=== PATIENT | male | born 1950 | race Caucasian/White ===

== ENCOUNTER → 2018-02-21 11:41 | Day surgery (SDC) | payer MEDICARE, BC ==
[~2018-02-21 11:41] MED LIST: Acetaminophen TAB* 325 MG PO PRN; Buffered Lidocaine 0.9% SYRIN* 5 ML/SYR SYRINGE INTRADERM ONE; Cyclopentolate 1% OPTH.SOL* 2 ML BTL ONE; Ketorolac 0.5% OPHTH (NF) 0.5 % 5 ML BTL ONE; Lidocaine 1%* 5 ML VIAL ONE; Lidocaine 2% EPI 1:200000 MPF*10-20 ML VIAL ONE; Midazolam* 1 MG/ML 2 ML VIAL (2 MG) ONE; Neomycin/Polymy/Dex OPTH.SUSP* MAXITROL 0.1% 5 ML ONE; Phenylephrine 2.5% OPTH.SOL* 2 ML BTL ONE; Povidone Iodine 5% OPTH* 30 ML BTL ONE; Proparacaine 0.5% OPHTH.SOL* 15 ML BTL ONE; acetaZOLAMIDE TAB* 250 MG ONE
[2018-02-21 14:59] VITALS: BP 105/48
--- NOTE | 2018-02-22 03:19 | OP ---
DATE OF OPERATION: 02/21/18 [facility] DATE OF : 48 SURGEON: Yonis Guzman M.D. PREOPERATIVE DIAGNOSIS: Cataract right eye. POSTOPERATIVE DIAGNOSIS: Cataract right eye. OPERATIVE PROCEDURE: Extracapsular cataract extraction with intraocular lens implant right eye and CTR. DESCRIPTION OF PROCEDURE: The patient was brought to the operating room after being given 1/2% Alcaine with epinephrine drops in the preoperative area. The eye was prepped and draped in the usual sterile fashion. Sterile drape and eyelid speculum were placed. Again, topical 1/2% Alcaine with epinephrine was given. A paracentesis incision was made at the 9 o'clock position with the No.75 blade. Clear cornea incision 2.2 x 2.2-mm was created at the 12 o'clock position starting at the anterior limbus using the 2.2-mm keratome. The anterior chamber was irrigated with 0.4 mL of 1% non-preservative intracameral lidocaine and filled with DisCoVisc. A capsulorrhexis was completed using the cystotome and the Utrata forceps. Hydrodissection was performed with balanced salt solution. The lens nucleus was removed with the Phacoemulsification handpiece without incident. Cortex was removed with the irrigation-aspiration handpiece. The capsular bag was re-inflated using DisCoVisc and an SN60WF 13.5 implant followed by a capsular tension ring was inserted with the shooter. The irrigation-aspiration handpiece was used to remove all residual DisCoVisc. The eye was refilled with balanced salt solution and the wound checked and found to be watertight. Topical Maxitrol drops were given. Indication for complex cataract surgery is status post vitrectomy requiring capsular tension ring device. [id number]/[facility] #: [id number] [facility]
== END | disposition home or self-care (01) ==
LOC: OREAST 11:41
PROVIDERS: ATTEND Specialist
DX: H25.811 Combined forms of age-related cataract, right eye (principal); H33.8 Other retinal detachments; E11.9 Type 2 diabetes mellitus without complications; Z79.84 Long term (current) use of oral hypoglycemic drugs; Z87.891 Personal history of nicotine dependence; I10 Essential (primary) hypertension; G47.33 Obstructive sleep apnea (adult) (pediatric)
CPT/HCPCS: A9270-GY; J2250; V2632

== ENCOUNTER 2018-02-28 08:44 | Day surgery (SDC) | payer MEDICARE, BC ==
[~2018-02-28 08:44] MED LIST changes: -Cyclopentolate 1% OPTH.SOL* 2 ML BTL ONE; -Ketorolac 0.5% OPHTH (NF) 0.5 % 5 ML BTL ONE; -Lidocaine 1%* 5 ML VIAL ONE; -Lidocaine 2% EPI 1:200000 MPF*10-20 ML VIAL ONE; -Midazolam* 1 MG/ML 2 ML VIAL (2 MG) ONE; -Neomycin/Polymy/Dex OPTH.SUSP* MAXITROL 0.1% 5 ML ONE; -Phenylephrine 2.5% OPTH.SOL* 2 ML BTL ONE; -Povidone Iodine 5% OPTH* 30 ML BTL ONE; -Proparacaine 0.5% OPHTH.SOL* 15 ML BTL ONE; -acetaZOLAMIDE TAB* 250 MG ONE
[2018-02-28] MEDS ORDERED: fentaNYL* 50 MCG/ML 2 ML VIAL (100 MCG VIAL) ONE (10:28)
[2018-02-28] MEDS ORDERED: Midazolam* 1 MG/ML 2 ML VIAL (2 MG) ONE (10:28)
[2018-02-28 13:24] VITALS: BP 91/51
[2018-02-28] MEDS ORDERED: Phenylephrine 2.5% OPTH.SOL* 2 ML BTL ONE (14:19)
[2018-02-28] MEDS ORDERED: Lidocaine 2% EPI 1:200000 MPF*10-20 ML VIAL ONE (14:19)
[2018-02-28] MEDS ORDERED: Povidone Iodine 5% OPTH* 30 ML BTL ONE (14:19)
[2018-02-28] MEDS ORDERED: Ketorolac 0.5% OPHTH (NF) 0.5 % 5 ML BTL ONE (14:19)
[2018-02-28] MEDS ORDERED: acetaZOLAMIDE TAB* 250 MG ONE (14:19)
[2018-02-28] MEDS ORDERED: Cyclopentolate 1% OPTH.SOL* 2 ML BTL ONE (14:19)
[2018-02-28] MEDS ORDERED: Proparacaine 0.5% OPHTH.SOL* 15 ML BTL ONE (14:19)
[2018-02-28] MEDS ORDERED: Lidocaine 1%* 5 ML VIAL ONE (14:19)
[2018-02-28] MEDS ORDERED: Neomycin/Polymy/Dex OPTH.SUSP* MAXITROL 0.1% 5 ML ONE (14:19)
== END 2018-02-28 12:30 | disposition other institution (70) ==
LOC: OREAST 08:44
PROVIDERS: ATTEND Specialist
DX: H25.812 Combined forms of age-related cataract, left eye (principal); I49.3 Ventricular premature depolarization; Z53.09 Procedure and treatment not carried out because of other contraindication; H33.8 Other retinal detachments; E11.9 Type 2 diabetes mellitus without complications; Z79.84 Long term (current) use of oral hypoglycemic drugs; I10 Essential (primary) hypertension; E78.00 Pure hypercholesterolemia, unspecified; G47.30 Sleep apnea, unspecified; E66.9 Obesity, unspecified; Z87.891 Personal history of nicotine dependence
CPT/HCPCS: A9270-GY; J2250; J3010

== ENCOUNTER → 2018-02-28 12:31 | Emergency (ER) | payer MEDICARE, BC ==
[~2018-02-28 12:31] MED LIST changes: -Acetaminophen TAB* 325 MG PO PRN; -Buffered Lidocaine 0.9% SYRIN* 5 ML/SYR SYRINGE INTRADERM ONE; +NS 0.9% 1000 ML* 1,000 ML IV ONE
--- OUTSIDE RECORDS SUMMARY | 2018-02-28 12:47 | XMS REPORT ---
:1950 External Reference #:[id number] Author Organization [facility] Address [address] [place] [address] Phone [phone] Care Team Providers Name Role Phone Sony Blake MD Primary Care Physician Unavailable Payers Type Date Identification Numbers Payment Provider Subscriber Medicare Primary Policy Number: [id number] Medicare - NGS Titus Proctor PayID: [id number] [address] [facility] [place] [address] Medigap Part B Policy Number: [id number] BS [place] [employer] Titus Meek Hitesh PayID: [id number] [address] [address] [place] [address] Problems Date Description Provider Status Onset: Type 2 diabetes mellitus Active Onset: Hypertensive disorder Active Onset: Hypercholesterolemia Active Onset: 01/30/2018 Retinal detachment Yonis Guzman M.D. Active Onset: 01/30/2018 Combined form of senile cataract Yonis Guzman M.D. Active Family History Date Family Member(s) Problem(s) Comments Father No Current Problems Mother Unknown cataract? amd? 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 Pravastatin 0 Active Tablets 20mg Take 1 Unknown Sodium 000 Tablet By Mouth AT Bedtime Januvia 0 Active Tablets 100mg Take 1 Unknown 000 Tablet Daily. Invokana 0 Active Tablets 100mg Take 1 Unknown 000 Tablet By Mouth Every Day Sildenafil 0 Active Tablets 100mg Gawel, Citrate 000 Sony ARMENTA Results Description No Information Procedures Description No Information Plan of Care 01/30/2018 - Yonis Guzman M.D.H25.813 Combined forms of age-related cataract , bilateralComments:Smoking can increase the risk of developing or worsening any eye related disease, as well as affect your overall health. If you are a smoker, we strongly recommend that you quit.If you are not a smoker, we strongly recommend that you do not start. You have been diagnosed with cataracts. They are limiting your vision, and I am unable to improve you with new glasses. Our next step is to schedule Cataract surgery and all necessary appointments, which Kavin will do for you. We recommend that you write down any questions you may have and bring them to your preoperative appointment so that Dr. Guzman can answer them for you. If you have any questions or concerns, you can reach Madelin Spence at .Follow up:For preop exam before surgery.H33.8 Other retinal detachmentsComments:The area in the left retina that was treated for a hole/ tear looks stable. I do not see any new holes or tears in your left retina at this time. If you notice any new flashes of light or a sudden onset of floaters in your vision, please give our office a call immediately to schedule an appointment.Your old retinal detachment in your right eye appears to be stable at this time. If you have any new symptoms of flashes of light or floaters, please contact our office immediately.E11.9 Type 2 diabetes mellitus without complicationsComments:You have diabetes. I do not detect any changes in both of your retinas from diabetes at this time. Proper control of your diabetes is important for the health of your eyes. Changes in your eyes from diabetes can happen without symptoms, so it is important that you have your eyes examined. Dr. Guzman has sent a report to your primary care doctor, letting them know there is no damage from the Diabetes in your eyes.
[2018-02-28 13:00] LABS: ABS Basophils 0.1 10^3/ul (0-0.2); ABS Eosinophils 0.4 10^3/ul (0-0.6); ABS Lymphocytes 2.1 10^3/ul (1.0-4.8); ABS Monocytes 0.7 10^3/ul (0-0.8); ABS Nucleated RBC 0 10^3/ul; Eosinophil % 5.5 % (0-6); Hematocrit 42 % (42-52); Hemoglobin 14.6 g/dl (14.0-18.0); Lymphocyte % 28.9 % (25-47); Mean Corpuscular HGB Conc 35 g/dl (31-36); Mean Corpuscular Hemoglobin 32 pg (27-31); Mean Corpuscular Volume 93 fL (80-94); Mean Platelet Volume 7.8 um3 (7.4-10.4); Nucleated Red Blood Cells % 0; Platelet Count 199 10^3/ul (150-450); Red Blood Count 4.55 10^6/ul (4.00-5.40); Red Cell Distribution Width 13 % (10.5-15); White Blood Count 7.4 10^3/ul (3.5-10.8)
[2018-02-28 13:17] LABS: EGFR Non-African American 93.4 (>60)
--- NOTE | 2018-02-28 13:26 | ED ---
Palpitations / Dysrhythmia - HPI Summary HPI Summary: This is Kirsten painter, documenting for attending Joe Terry MD. This patient is a 67 year old M BIBA to [facility] accompanied by his due to ventricular ectopy found after he was given Versed and Fentanyl prior to set up for cataract surgery this morning. Patient remained asymptomatic, and denies current symptoms including chest pain/tightness, SOB, lightheadedness, and dizziness. He states he did not have similar issues with cataract surgery last week. He states he had a couple sips of coffee this morning with his Lamepril and Metoprolol this morning, but has otherwise not eaten or drank today. States he typically drinks a couple cups of coffee each morning. PMHx includes HTN, DM , sleep apnea, and obesity. Patient's PCP is Dr. Sony Blake, in [place]. I, Dr. Terry personally performed the services described in this documentation as scribed in my presence and it is both accurate and complete. - History of Current Complaint Chief Complaint: EDDysrhythmPalp Time Seen by Provider: 02/28/18 12:36 Hx Obtained From: Patient, Medical Records Onset/Duration: Lasting Minutes Alleviating: Nothing Associated Signs & Symptoms: Negative - Allergy/Home Medications Allergies/Adverse Reactions: Allergies Allergy/AdvReac Type Severity Reaction Status Date / Time No Known Allergies Allergy Verified 02/28/18 09:02 PMH/Surg Hx/FS Hx/Imm Hx Endocrine/Hematology History: Reports: Hx Diabetes - FINGER STICKS 2X WEEK Cardiovascular History: Reports: Hx Hypertension Respiratory History: Reports: Hx Sleep Apnea Musculoskeletal History: Reports: Hx Arthritis Sensory History: Reports: Hx Cataracts - PRESENTLY, Hx Contacts or Glasses - GLASSES Denies: Hx Hearing Aid Opthamlomology History: Reports: Hx Cataracts - PRESENTLY, Hx Contacts or Glasses - GLASSES - Surgical History Surgery Procedure, Year, and Place: KNEE SURGERY BOTH 2008 [place]. RIGHT TOTAL HIP [place] Hx Anesthesia Reactions: No Infectious Disease History: No Infectious Disease History: Reports: Hx Hepatitis - AGE 19 Denies: Traveled Outside the [place] in Last 30 Days - Family History Known Family History: Positive: Hypertension - Social History Alcohol Use: Occasionally Substance Use Type: Reports: None Smoking Status (MU): Former Smoker Have You Smoked in the Last Year: No Review of Systems Negative: Fever, Chills Negative: Erythema Negative: Sore Throat Negative: Chest Pain Negative: Shortness Of Breath, Cough Negative: Abdominal Pain, Vomiting, Diarrhea, Nausea Negative: dysuria, hematuria Negative: Myalgia, Edema Negative: Rash Neurological: Negative - dizziness All Other Systems Reviewed And Are Negative: Yes Physical Exam - Summary Physical Exam Summary: Constitutional: Well-developed, Well-nourished, Alert. (-) Distressed Skin: Warm, Dry HENT: Normocephalic; Atraumatic Eyes: Conjunctiva normal Neck: Musculoskeletal ROM normal neck. (-) JVD, (-) Stridor, (-) Tracheal deviation Cardio: Rhythm regular, rate normal, Heart sounds normal; Intact distal pulses; The pedal pulses are 2+ and symmetric. Radial pulses are 2+ and symmetric. (-) Murmur Pulmonary/Chest wall: Effort normal. (-) Respiratory distress, (-) Wheezes, (-) Rales Abd: Soft, (-) epigastric tenderness, (-) Distension, (-) Guarding, (-) Rebound Musculoskeletal: (-) Edema Lymph: (-) Cervical adenopathy Neuro: Alert, Oriented x3 Psych: Mood and affect Normal Triage Information Reviewed: Yes Vital Signs On Initial Exam: Initial Vitals Temp Pulse Resp BP Pulse Ox 98 F 73 18 133/56 99 02/28/18 12:36 02/28/18 12:36 02/28/18 12:36 02/28/18 12:36 02/28/18 12:36 Vital Signs Reviewed: Yes Diagnostics - Vital Signs Vital Signs Temp Pulse Resp BP Pulse Ox 02/28/18 13:00 68 13 97 02/28/18 12:39 76 17 99 02/28/18 12:36 98 F 73 18 133/56 99 - Laboratory Lab Results: Lab Results 02/28/18 02/28/18 Range/Units 12:54 12:54 WBC 7.4 (3.5-10.8) 10^3/ul RBC 4.55 (4.00-5.40) 10^6/ul Hgb 14.6 (14.0-18.0) g/dl Hct 42 (42-52) % MCV 93 (80-94) fL MCH 32 H (27-31) pg MCHC 35 (31-36) g/dl RDW 13 (10.5-15) % Plt Count 199 (150-450) 10^3/ul MPV 7.8 (7.4-10.4) um3 Neut % (Auto) 54.8 (38-83) % Lymph % (Auto) 28.9 (25-47) % [place] % (Auto) 10.0 H (0-7) % Eos % (Auto) 5.5 (0-6) % Baso % (Auto) 0.8 (0-2) % Absolute Neuts (auto) 4.0 (1.5-7.7) 10^3/ul Absolute Lymphs (auto) 2.1 (1.0-4.8) 10^3/ul Absolute Monos (auto) 0.7 (0-0.8) 10^3/ul Absolute Eos (auto) 0.4 (0-0.6) 10^3/ul Absolute Basos (auto) 0.1 (0-0.2) 10^3/ul Absolute Nucleated RBC 0 10^3/ul Nucleated RBC % 0 Sodium 136 (135-145) mmol/L Potassium 4.3 (3.5-5.0) mmol/L Chloride 105 (101-111) mmol/L Carbon Dioxide 24 (22-32) mmol/L Anion Gap 7 (2-11) mmol/L BUN 21 (6-24) mg/dL Creatinine 0.82 (0.67-1.17) mg/dL Est GFR ( Amer) 113.1 (>60) Est GFR (Non-Af Amer) 93.4 (>60) BUN/Creatinine Ratio 25.6 H (8-20) Glucose 121 H (70-100) mg/dL Calcium 9.0 (8.6-10.3) mg/dL Magnesium 2.0 (1.9-2.7) mg/dL Total Bilirubin 1.30 H (0.2-1.0) mg/dL AST 29 (13-39) U/L ALT 34 (7-52) U/L Alkaline Phosphatase 48 (34-104) U/L Total Protein 6.6 (6.4-8.9) g/dL Albumin 3.6 (3.2-5.2) g/dL Globulin 3.0 (2-4) g/dL Albumin/Globulin Ratio 1.2 (1-3) TSH Pending Thyroxine (T4) Pending Result Diagrams: 02/28/18 12:54 02/28/18 12:54 Lab Statement: Any lab studies that have been ordered have been reviewed, and results considered in the medical decision making process. - EKG 1240 Cardiac Rate: Bradycardia - 81 BPM EKG Rhythm: Sinus Bradycardia EKG Interpretation: sinus bradycardia with cuplets Re-Evaluation - Re-Evaluation First Re-Evaluation Time: 14:55 Change: Improved Comment: Couplets are less frequent, but still present. Course/Dx - Course Course Of Treatment: 67 year old M [facility] accompanied [facility] his due to ventricular ectopy found after he was given Versed and Fentanyl prior to set up for cataract surgery this morning. Patient remained asymptomatic, and denies current symptoms including chest pain/tightness, SOB, lightheadedness, and dizziness. He states he did not have similar issues with cataract surgery last week. He states he had a couple sips of coffee this morning with his Lamepril and Metoprolol this morning, but has otherwise not eaten or drank today.Patient remains unsymptomatic while in the ED. His couplets are less frequent, but are still present. Fasting status could be contributing to patient's ventricular couplets. Dr. Wylie, cardiology recommends discussing care with patient's PCP , due to lack of records. I spoke with Dr. Blake, the patient's PCP, who agrees to see as an outpatient and will have him see a intelligent systems engineer. Patient is advised to return to the ED if he experiences CP, dizziness, or SOB. - Diagnoses Provider Diagnoses: Unifocal PVCs - Physician Notifications Discussed Care Of Patient With: Loly Wylie - cardiology Time Discussed With Above Provider: 14:40 Instructed by Provider To: Other - Recommends discussing with patients PCP as we have no previous records of the patient Discharge - Sign-Out/Discharge Documenting (check all that apply): Patient Departure - Discharge Plan Condition: Stable Disposition: HOME Patient Education Materials: Electrophysiology Study (DC) Referrals: Lou ARMENTA,Sony Wood [Primary Care Provider] - 2 Days Additional Instructions: RETURN TO THE EMERGENCY DEPARTMENT IF YOU HAVE CHEST PAIN, DIZZINESS, OR SHORTNESS OF BREATH. Consult Consult: At 14:45, Dr. Blake, patients PCP, states he is willing to follow up on an outpatient basis and will have him see a intelligent systems engineer.
[2018-02-28 15:18] VITALS: BP 138/83
== END | disposition home or self-care (01) ==
LOC: ED 12:31
DX: I49.3 Ventricular premature depolarization (principal); I10 Essential (primary) hypertension; E11.9 Type 2 diabetes mellitus without complications; G47.30 Sleep apnea, unspecified; E66.9 Obesity, unspecified; Z87.891 Personal history of nicotine dependence
CPT/HCPCS: 36415; 80053; 83735; 84436; 84443; 85025; 93005; 99282

== ENCOUNTER → 2018-06-06 12:46 | Day surgery (SDC) | payer MEDICARE, BC ==
[~2018-06-06 12:46] MED LIST changes: +Acetaminophen TAB* 325 MG PO PRN; +Buffered Lidocaine 0.9% SYRIN* 5 ML/SYR SYRINGE INTRADERM ONE; +Cyclopentolate 1% OPTH.SOL* 2 ML BTL ONE; +Ketorolac 0.5% OPHTH (NF) 0.5 % 5 ML BTL ONE; +Lidocaine 1%* 5 ML VIAL ONE; +Lidocaine 2% EPI 1:200000 MPF*10-20 ML VIAL ONE; +Midazolam* 1 MG/ML 2 ML VIAL (2 MG) ONE; -NS 0.9% 1000 ML* 1,000 ML IV ONE; +Neomycin/Polymy/Dex OPTH.SUSP* MAXITROL 0.1% 5 ML ONE; +Phenylephrine 2.5% OPTH.SOL* 2 ML BTL ONE; +Povidone Iodine 5% OPTH* 30 ML BTL ONE; +Proparacaine 0.5% OPHTH.SOL* 15 ML BTL ONE; +acetaZOLAMIDE TAB* 250 MG ONE
[2018-06-06 15:33] VITALS: BP 104/61
--- NOTE | 2018-06-07 06:20 | OP ---
DATE OF OPERATION: 06/06/18 [facility] DATE OF : 48 SURGEON: Yonis Guzman M.D. PREOPERATIVE DIAGNOSIS: Cataract, left eye. POSTOPERATIVE DIAGNOSIS: Cataract, left eye. OPERATIVE PROCEDURE: Extracapsular cataract extraction with intraocular lens implant left eye. DESCRIPTION OF PROCEDURE: The patient was brought to the operating room after being given 1/2% Alcaine with epinephrine drops in the preoperative area. The eye was prepped and draped in the usual sterile fashion. Sterile drape and eyelid speculum were placed. Again, topical 1/2% Alcaine with epinephrine was given. A paracentesis incision was made at the 3 o'clock position with the No.75 blade. Clear cornea incision 2.2 x 2.2-mm was created at the 6 o'clock position starting at the anterior limbus using the 2.2-mm keratome. The anterior chamber was irrigated with 0.4 mL of 1% non-preservative intracameral lidocaine and filled with DisCoVisc. A capsulorrhexis was completed using the cystotome and the Utrata forceps. Hydrodissection was performed with balanced salt solution. The lens nucleus was removed with the Phacoemulsification handpiece without incident. Cortex was removed with the irrigation-aspiration handpiece. The capsular bag was re-inflated using DisCoVisc and an SN60WF 14.5 implant was inserted with the shooter. The irrigation-aspiration handpiece was used to remove all residual DisCoVisc. The eye was refilled with balanced salt solution and the wound checked and found to be watertight. Topical Maxitrol drops were given. [id number]/[facility] #: [id number] [facility]
== END | disposition home or self-care (01) ==
LOC: OREAST 12:46
PROVIDERS: ATTEND Specialist
DX: H25.812 Combined forms of age-related cataract, left eye (principal); H33.8 Other retinal detachments; E78.00 Pure hypercholesterolemia, unspecified; Z87.891 Personal history of nicotine dependence; Z96.1 Presence of intraocular lens
CPT/HCPCS: A9270-GY; J2250; V2632